=== PATIENT | male | born 1995 | race African-American/Black ===

== ENCOUNTER 2025-01-31 04:32 | Emergency (ER) | payer OTHER, SELFPAY ==
[2025-01-31 05:01] VITALS: BP 138/96
[2025-01-31 05:33] LABS: COVID-19 Antigen Negative (Negative)
[2025-01-31 06:31] VITALS: BP 143/74; BMI 29.9
--- NOTE | 2025-01-31 06:45 | PTCARENOTE ---
patient endorses cold/flu symptoms of cough, sore throat, stuffy nose x 2 days; patient states he has been coughing nonstop and is beginning to experience discomfort of his ribs/chest worse during coughing. patient denies SOB.
--- NOTE | 2025-01-31 08:43 | ED.GENMED ---
History of Present Illness
General
Chief Complaint: Cold/Flu/URI Symptoms
Source: patient
Exam Limitations: none
Time Seen by Provider: 01/31/25 07:06
Nursing documentation reviewed up to this point in time: agreed with
History of Present Illness
History of Present Illness:
Patient presents to ED secondary to a 4-day history of nasal congestion, sore throat, and nonproductive cough, along with decreased appetite. Denies fever or chills. Denies nausea, vomiting, or diarrhea. Denies sick contact. Denies recent
travel. Denies rash. Denies headache. 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 Patient otherwise is healthy, without any significant medical history. Patient
does not smoke.
Review of Systems
Review of Systems
Allergies reviewed?: Yes
All Other Systems: ROS reviewed and negative except as documented in HPI and ROS
Constitutional: Reports no symptoms; Denies fever or chills
EENT: Reports sore throat and runny nose
Respiratory: Reports cough; Denies trouble breathing
Cardiac: Reports no symptoms; Denies chest pain
ABD/GI: Reports no symptoms; Denies vomiting or diarrhea
Musculoskeletal: Reports no symptoms; Denies muscle pain
Skin: Reports no symptoms; Denies rash
Neurological: Reports no symptoms; Denies headache
Phy Exam
Physical Exam
Physical Exam:
Physical Exam
General: no apparent distress, not acutely ill. afebrile
Head: nc/at. eomi
Neck: supple. no meningeal signs.
Heart: s1/s2 regular rate and rhythm
Lungs: no acute respiratory distress. clear bilaterally
Abdomen: normal bowel sounds. not tender.
Neuro: alert and oriented x 3. no focal neurological deficits
Skin: no rash
Psychiatric: well kept. interactive and cooperative
Extremities: no edema. no calf tenderness.
Course
Orders/Labs/Results
Orders:
Orders
01/31/25 05:05
Chest [CR Chest - 2 Views ] Urgent
Comment:
Reason For Exam: cough
01/31/25 05:08
COVID-19 Antigen Urgent
Source: Nasal Swab
Influenza A+B Rapid Molecular Urgent
TAI Source: Nasal Swab
Specimen Description:
Vital Signs
Initial and Last Documented VS:
Initial Vital Signs
Temp Pulse Resp BP Pulse Ox
98.7 F 82 20 138/96 99
01/31/25 05:01 01/31/25 05:01 01/31/25 05:01 01/31/25 05:01 01/31/25 05:01
Last Documented Vital Signs
Temp Pulse Resp BP Pulse Ox
98.9 F 72 16 142/78 97
01/31/25 06:31 01/31/25 08:50 01/31/25 08:50 01/31/25 08:50 01/31/25 08:50
MDM/Problems Addressed
MDM/Problems Addressed:
History, exam, and chest x-ray consistent with likely viral illness versus bronchitis, less likely chemical pneumonitis. Patient otherwise is afebrile, hemodynamically stable, and nontoxic-appearing, without any evidence of dehydration. As such,
decision made to discharge patient home with Z-Santos along with short course of prednisone, as well as referral to PCP for reevaluation as an outpatient. Patient expresses understanding at time of discharge.
*Pulse Oximetry
SaO2: 100
Oxygen Mode of Delivery: Room air
Patient hypoxic: no
*Critical Care Note
Total Time (30-74mins, 75-104mins- exclusive of procedures): Not Applicable
ED Attending Note
-
Portions of this chart may have been created with voice recognition software.� Occasional wrong word or��sound alike� substitutions may have occurred due to the inherent limitations of voice recognition software.
Discharge Plan
Departure
Patient Disposition: Home (Routine Discharge)
Date of Disposition: 01/31/25
Time of Disposition: 08:46
Patient with high blood pressure during this ER visit?: Yes
Condition: Good
Discharge Problem:
Acute bronchitis
Instructions: Acute Bronchitis, Adult (DC)
Prescriptions:
New
azithromycin [Zithromax Z-Santos] 250 mg tablet
250 mg PO DAILY 6 Days Qty: 6 0RF
prednisone 50 mg tablet
50 mg PO DAILY Qty: 3 0RF
Referrals:
UNKNOWN,NO INTERVIEW [Family Provider]
Stand Alone Forms: Return to Work
Activity Restrictions/Additional Instructions:
As discussed, please follow-up with your primary care physician for reevaluation, or consider return to ED with worsening symptoms.
Interventions
Interventions:
*Risk Screen - Suicide Last Done: 01/31/25 05:01
*General Assessment Last Done: 01/31/25 05:01
*Neglect/Abuse Screening Last Done: 01/31/25 05:01
*ED- Fall Risk Assessment Last Done: 01/31/25 05:01
*ED COVID-19 Vaccine History Last Done: 01/31/25 05:01
*ED Influenza Vaccine History Last Done: 01/31/25 05:01
*Nursing Disposition Last Done: 01/31/25 08:50
ED- Pulmonary Assessment Last Done: 01/31/25 06:31
Discharge Date and Time
Discharge Date/Time: 01/31/25 08:50
Print Language: SLOVENIAN
[2025-01-31 08:50] VITALS: BP 142/78
== END 2025-01-31 08:50 | disposition home or self-care (01) ==
LOC: EMR 04:32
PROVIDERS: Student in an Organized Health Care Education/Training Program; EMERGENCY PHYSICIAN Emergency Medicine
DX: J20.9 Acute bronchitis, unspecified (principal); J02.9 Acute pharyngitis, unspecified; R09.81 Nasal congestion; Z11.52 Encounter for screening for COVID-19
CPT/HCPCS: 99284; 71046; 87502; 87811